=== PATIENT | female | born 1965 | race Two or more races ===

== ENCOUNTER 2024-06-29 14:39 | Emergency (ER) | payer SELFPAY ==
[2024-06-29] MEDS ORDERED: SODIUM CHLORIDE 0.9% 1,000 ML IV ONE (15:15)
[2024-06-29] MEDS ORDERED: HALOPERIDOL LACTATE 5 MG/ML INJ VIAL IM ONE (15:15)
[2024-06-29] MEDS ORDERED: diphenhdrAMINE HCL 50 MG/1 ML VL IV ONE (15:15)
[2024-06-29] MEDS ORDERED: LORazepam 2MG/ML-1ML VIAL IV ONE (15:15)
--- NOTE | 2024-06-29 15:25 | ED.PDOC ---
History of Present Illness HPI Comments 59Y F presents to ED with sheriff [place] for chief complaint nain. Per deputobed, pt became verbal with some customers when 911 was called. Pt's HR was in the 130s with . Per pt, she was just released from a psych real in [place] this morning. Pt requested to leave but refuses to answer questions. Time Seen by MD: 14:43 Reviewed Notes: Medications, Allergies Information Source: Patient, Law [employer] Mode of Arrival: Ambulatory Severity: Moderate Timing: Hours Duration: Since onset Past Medical History PAST MEDICAL HISTORY: Unknown Surgical History: Unknown EP TECH History: Unknown Family History Family History: Unknown Social History Smoker: Unknown Alcohol: Unknown Drugs: Unknown Lives In: Unknown Constitutional: denies: chills, diaphoresis, fatigue, fever, malaise, sweats, weakness, others EENTM: denies: blurred vision, double vision, ear bleeding, ear discharge, ear drainage, ear pain, ear ringing, eye pain, eye redness, hearing loss, mouth pain, mouth swelling, nasal discharge, nose bleeding, nose congestion, nose pain, photophobia, tearing, throat pain, throat swelling, voice changes, others Respiratory: denies: cough, hemoptysis, orthopnea, SOB at rest, shortness of breath, SOB with excertion, stridor, wheezing, others Cardiovascular: denies: chest pain, dizzy spells, diaphoresis, Dyspnea on exertion, edema, irregular heart beat, left arm pain, lightheadedness, palpitations, PND, syncope, others Gastrointestinal: denies: abdomen distended, abdominal pain, blood streaked bowels, constipated, diarrhea, dysphagia, difficulty swallowing, hematemesis, melena, nausea, poor appetite, poor fluid intake, rectal bleeding, rectal pain, vomiting, others Genitourinary: denies: abnormal vagina bleeding, burning, dyspareunia, dysuria, flank pain, frequency, hematuria, incontinence, pain, , vagina discharge, urgency, others Neurological: denies: dizziness, fainting, headache, left sided numbness, left sided weakness, numbness, paresthesia, pre-existing deficit, right sided numbness, right sided weakness, seizure, speech problems, tingling, tremors, w eakness, others Musculoskeletal: denies: back pain, gout, joint pain, joint swelling, muscle pain, muscle stiffness, neck pain, others Integumetry: denies: bruises, change in color, change in hair/nails, dryness, laceration, lesions, lumps, rash, wounds, others Allergic/Immunocompromised: denies: Difficulty Healing, Frequent Infections, Hives, Itching, others Hematologic/Lymphatic: denies: anemia, blood clots, easy bleeding, easy bruising, swollen glands, others Endocrine: denies: excessive hunger, excessive sweating, excessive thirst, excessive urination, flushing, intolerance to cold, intolerance to heat, unexplained weight gain, unexplained weight loss, others Psychiatric: denies: anxiety, bipolar disorder, depression, hopeless, panic disorder, schizophrenia, sleepless, suicidal, others Unable to Obtain due to: Altered Mental Status All Other Systems: Reviewed and Negative Physical Exam General Appearance: Moderate Distress HEENT: Normal ENT Inspection, Pharynx Normal Neck: Full Range of Motion, Normal, Normal Inspection Respiratory: Chest Non-Tender, Lungs Clear, No Accessory Muscle Use, No Respiratory Distress Cardiovascular: No Edema, No JVD Breast Exam: Deferred Gastrointestinal: No Organomegaly Genitalia: Deferred Pelvic: Deferred Rectal: Deferred Extremities: Normal inspection Musculoskeletal : Apperance: Normal Neurologic: Alert, Other (Patient belligerent. Patient having tangential thought process. Uncooperative with me does not answer questions when asked. Cursing at me. Patient currently in handcuffs.) Cerebellar Function: NOT DONE Reflexes: NOT DONE Skin: Dry, Normal Color Lymphatic: No Adenopathy, NOT DONE Was a procedure done? Was a procedure done?: No Differential Dx Considerations may include: dehydration, drug ingestion, acute psychosis, rhabdomyolysis X-Ray, Labs, Meds, VS 59-year-old female brought in by police for medical clearance. They state that she was at a liquor store and was aggressive and was called by [employer]. They suspect possible ingestion. However patient de denies any ingestion. She was found have a heart rate in the 130s by police. She refused to answer any questions for me. Nursing staff asked me to sign her out against medical advice as patient wanted to leave. However given patient was having tangential thought, I do not feel patient was coherent to be signed out against medical advice and I did not. At this time plan was for us to medically clear the patient is now emergency department. Therefore sure if took her out of handcuffs and patient ran out immediately from the emergency department. witnessed the run and has taken the patient back into their custody. Time of 1ST Reevaluation: 15:13 Reevaluation 1ST: Unchanged Patient Education/Counseling: Diagnosis, Treatment Family Education/Counseling: Diagnosis, Treatment, Other () Departure 1 Departure Time of Disposition: 15:30 Impression: Primary Impression: Psychosis Qualified Codes: F29 - Unspecified psychosis not due to a substance or known physiological condition Additional Impression: Combative behavior Disposition: 07 LEFT AWOL/ELOPED Condition: Poor Critical Care Note Critical Care Time?: No Stability Stability form required: No Heart Score Heart Score: Heart Score Response (Comments) Value History N/A 0 EKG N/A 0 Age N/A 0 Risk Factors N/A 0 Troponin N/A 0 Total 0 I personally scribed for DEO ROB MD ([email or web address]) on 06/29/24 at 15:25. Electronically submitted by Nargis Pettit ([email or web address]). DEO ROB MD Jun 29, 2024 15:25
== END 2024-06-29 16:30 | disposition left against medical advice (07) ==
LOC: ER 14:39
DX: F29 Unspecified psychosis not due to a substance or known physiological condition (principal)